=== PATIENT | female | born 1975 | race Two or more races ===

== ENCOUNTER 2025-05-12 14:53 | Inpatient (IN) | payer OTHER ==
[~2025-05-12] VITALS: Ht 154.9 cm; Wt 85.0 kg
--- NOTE | 2025-05-12 15:55 | ED.PDOC ---
Back pain HPI HPI Comments This is a 49 year-old female, who presents to the ED via wheelchair for worsening lower back pain as of X1 month ago. Patient reports that in the 1st week of April, she was lifting a box at work when she felt a "pinch" sensation to the right lower back with associated pain. She sought medical help through a chiropractic, with no relief noted. Patient reports an additional injury to the back last , 05/07/25, where she bent forward at home, worsening back pain. Patient then went to [facility] after increasing back pain, where she was discharged with lumbar radiculopathy. The patient was prescribed Tylenol, lidocaine patches, ibuprofen, and gabapentin, with little to no relief. Patient reports additionally undergoing an x-ray of the right femur lumbar spine and right lower extremity to rule out possible signs of DVT. Has a currently, the patient states pain is a 10/10 with an inability to ambulate. Patient has no further co mplaints at this time. Patient denies nausea, vomiting, fever, chills, dizziness, or chest pain. Denies history of chronic steroid use or history of osteoporosis Denies history of cancer Denies fevers chills night sweats nausea vomiting unintentional weight loss Denies abdominal tearing pain Denies syncope Denies urinary changes or urinary incontinence Denies numbness tingling of the groin her inner thigh Denies previous back procedures or surgeries Chief Complaint: Back Pain Time Seen by MD: 15:47 Reviewed Notes: Nurses Notes, Medications, Allergies Allergies: Coded Allergies: NO KNOWN ALLERGIES (Unverified , 05/12/25) Home Meds Active Scripts Gabapentin (Gabapentin) 300 Mg Cap, 1 CAP PO TID, #60 CAP 5 Refills Prov:PAMELA RAMOS MD 05/15/25 Baclofen (Baclofen) 20 Mg Tab, 1 TAB PO TID, #60 TAB 2 Refills Prov:PAMELA RAMOS MD 05/15/25 Oxycodone Hcl (OxyCONTIN ER Tablet) 10 Mg Tb, 1 TAB PO BID, #40 TAB Prov:PAMELA RAMOS MD 05/15/25 Reported Medications Acetazolamide (Acetazolamide) 250 Mg Tab, 500 MG PO Q6HR for 30 Days, MG 0 Refills 05/12/25 Methylprednisolone (Methylprednisolone) 4 Mg Tab, 4 MG PO, TAB 05/12/25 Lidocaine (Lidocaine Patch 5%) 5 % Pad, 5 % EX DAILY, PAD 05/12/25 Ibuprofen (Ibuprofen) 600 Mg Tab, 600 MG PO Q6HP, MG 0 Refills 05/12/25 Gabapentin (Gabapentin) 100 Mg Cap, 100 MG PO TID for 10 Days 05/12/25 Information Source: Patient, Spouse Mode of Arrival: Wheelchair Timing: Months Duration: Since onset Location of Back pain: (R) Lumbar Radiates to: Lateral: Other (R Leg ) Severity: Moderate Onset: Bending, Lifing Associated signs and symptoms: Other (Back pain) Past Medical History PAST MEDICAL HISTORY: Denies Surgical History: Denies all surgeries 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 History Family History Family History: Reviewed,noncontributory to illness, No family hx of Cancer, No family hx of DM, No family hx of Heart michelle, No family hx of HTN, No family hx ofKidney michelle, No family hx of Liver michelle, No family hx of Lung michelle, No family hx of Stroke Social History Smoker: Non-Smoker Alcohol: Denies ETOH Use Drugs: Denies Drug Use Lives In: Home Constitutional: denies: chills, diaphoresis, fatigue, fever, malaise, sweats, weakness, others EENTM: denies: blurred vision, double vision, ear bleeding, ear discharge, ear drainage, ear pain, ear ringing, eye pain, eye redness, hearing loss, mouth pain, mouth swelling, nasal discharge, nose bleeding, nose congestion, nose pain, photophobia, tearing, throat pain, throat swelling, voice changes, others Respiratory: denies: cough, hemoptysis, orthopnea, SOB at rest, shortness of breath, SOB with excertion, stridor, wheezing, others Cardiovascular: denies: chest pain, dizzy spells, diaphoresis, Dyspnea on exertion, edema, irregular heart beat, left arm pain, lightheadedness, palpitations, PND, syncope, others Gastrointestinal: denies: abdomen distended, abdominal pain, blood streaked bowels, constipated, diarrhea, dysphagia, difficulty swallowing, hematemesis, melena, nausea, poor appetite, poor fluid intake, rectal bleeding, rectal pain, vomiting, others Genitourinary: denies: abnormal vagina bleeding, burning, dyspareunia, dysuria, flank pain, frequency, hematuria, incontinence, pain, , vagina discharge, urgency, others Neurological: denies: dizziness, fainting, headache, left sided numbness, left sided weakness, numbness, paresthesia, pre-existing deficit, right sided num bness, right sided weakness, seizure, speech problems, tingling, tremors, weakness, others Musculoskeletal: reports: back pain; denies: gout, joint pain, joint swelling, muscle pain, muscle stiffness, neck pain, others Integumetry: denies: bruises, change in color, change in hair/nails, dryness, laceration, lesions, lumps, rash, wounds, others Allergic/Immunocompromised: denies: Difficulty Healing, Frequent Infections, Hi ves, Itching, others Hematologic/Lymphatic: denies: anemia, blood clots, easy bleeding, easy bruising, swollen glands, others Endocrine: denies: excessive hunger, excessive sweating, excessive thirst, excessive urination, flushing, intolerance to cold, intolerance to heat, unexplained weight gain, unexplained weight loss, others Psychiatric: denies: anxiety, bipolar disorder, depression, hopeless, panic disorder, schizophrenia, sleepless, suicidal, others All Other Systems: Reviewed and Negative Physical Exam General Appearance: Moderate Distress, Normal HEENT: Normal ENT Inspection, Pharynx Normal, TMs Normal Neck: Full Range of Motion, Non-Tender, Normal, Normal Inspection Respiratory: Chest Non-Tender, Lungs Clear, No Accessory Muscle Use, No Respiratory Distress, Normal Breath Sounds Cardiovascular: No Edema, No JVD, No Murmur, No Gallop, Normal Peripheral Pulses, Regular Rate/Rhythm Breast Exam: Deferred Gastrointestinal: No Organomegaly, Non Tender, No Pulsatile Mass, Normal Bowel Sounds, Soft Genitalia: Deferred Pelvic: Deferred Rectal: Deferred Extremities: No calf tenderness, Normal capillary refill, Normal inspection, Normal range of motion, Non-tender, No pedal edema Musculoskeletal : Location: Right Extremity Location: Back Apperance: Other (R lower back pain TTP, R straight leg raise test positive ) Neurologic: Alert, refrigeration technician II-XII nml as Tested, No Motor Deficits, Normal Affect, Normal Mood, No Sensory Deficits Cerebellar Function: Normal Reflexes: Normal Skin: Dry, Normal Color, Warm Lymphatic: No Adenopathy Was a procedure done? Was a procedure done?: No Back Pain Differential Dx Differential Diagnosis: Fracture, Musculoskeletal Pain, Strain X-Ray, Labs, Meds, VS Vital Signs Date Time Temp Pulse Resp B/P (MAP) Pulse Ox O2 Delivery O2 Flow Rate FiO2 05/12/25 14:58 97.6 85 16 110/72 99 97.6 Lab Test 05/12/25 18:30 05/12/25 14:37 Range/Units Urine Color Yellow Yellow Urine Clarity Clear Clear Urine pH 6.0 5.0-9.0 Urine Specific [place] 1.032 1.001-1.035 Urine Protein Negative Negative Urine Ketones Negative Negative Urine Blood Negative Negative /uL Urine Nitrite Negative Negative Urine Bilirubin Negative Negative Urine Urobilinogen Normal Negative mg/dL Urine Leukocyte Esterase Negative Negative /uL Urine RBC <1 0 - 4 /hpf Urine Microscopic WBC 1 0-5 /HPF Urine Squamous Epithelial Cells Few <5 /hpf Urine Bacteria Few H None Seen /hpf Urine Glucose Normal Normal mg/dL White Blood Count 10.5 4.4-10.8 10^3/uL Red Blood Count 4.64 4.0-5.20 10^6/uL Hemoglobin 13.9 12.2-16.2 g/dL Hematocrit 41.4 36.0-46.0 % Mean Corpuscular Volume 89.1 80.0-100.0 fL Mean Corpuscular Hemoglobin 30.0 28.0-32.0 pg Mean Corpuscular Hemoglobin Concent 33.6 32.0-36.0 g/dL Red Cell Distribution Width 13.5 11.8-14.3 % Platelet Count 264 140-450 10^3/uL Mean Platelet Volume 9.9 6.9-10.8 fL Neutrophils (%) (Auto) 67.7 37.0-80.0 % Lymphocytes (%) (Auto) 26.8 10.0-50.0 % Monocytes (%) (Auto) 4.4 0.0-12.0 % Eosinophils (%) (Auto) 0.6 0.0-7.0 % Basophils (%) (Auto) 0.5 0.0-2.0 % Neutrophils # (Auto) 7.1 1.6-8.6 10 ^3/uL Lymphocytes # (Auto) 2.8 0.4-5.4 10 ^3/uL Monocytes # (Auto) 0.5 0-1.3 10 ^3/uL Eosinophils # (Auto) 0.1 0-0.8 10 ^3/uL Basophils # (Auto) 0.1 0-0.2 10 ^3/uL Nucleated Red Blood Cells 0.1 % Erythrocyte Sedimentation Rate 13 0-20 mm/hr Sodium Level 142 136-145 mmol/L Potassium Level 3.7 3.5-5.1 mmol/L Chloride Level 107 98-107 mmol/L Carbon Dioxide Level 26 20-31 mmol/L Anion Gap 9 5-15 Blood Urea Nitrogen 14 9-23 mg/dL Creatinine 0.92 0.550-1.02 mg/dL Glomerular Filtration Rate Calc 76 >90 mL/min BUN/Creatinine Ratio 15.2 10.0-20.0 Serum Glucose 100 74-106 mg/dL Calcium Level 9.3 8.7-10.4 mg/dL C-Reactive Protein High Sensitivity 0.29 <1.0 mg/dL X-Ray, Labs, Meds, VS Comment This is a 49 year-old female, who presents to the ED via wheelchair for worsening lower back pain as of X1 month ago. Patient arrives alert and oriented, ABC's intact, afebrile, vital signs stable, saturating well in room air Peripheral IV insertion+ labs were ordered. CBC was ordered to exclude anemia, blood loss, or infection. BMP was ordered to exclude electrolyte abnormalities, renal failure, dehydration, hyperglycemia Urinalysis was ordered to rule out UTI or hematuria. Erythrocyte sedimentation rate and C-reactive protein were ordered. Diagnostic imaging ordered by me and results interpreted by radiology : L-spine CT with no contrast pending results at this time Patient was given: [place] 7.5/325 mg. Tolerated medications with no adverse reaction. Patients work up was remarkable for intractable lower back pain. The patient's workup reveals that the patient needs further evaluation and/or treatment for the above medical conditions. Patient may benefit from an MRI and will be admitted for pain control Patient verbalized understanding of the above and is awaiting further evaluation by the admitting service. Images Reviewed?: Images reviewed and evaluated by me Time of 1ST Reevaluation: 16:44 Reevaluation 1ST: Unchanged Patient Education/Counseling: Diagnosis, Treatment, Need For Follow Up Family Education/Counseling: Diagnosis, Treatment, Need For Follow Up Medical Screening: No EMC Exist At This Time SEPSIS Sepsis Screen Date sepsis recognized/suspect: May 12, 2025 Time Sepsis recognized/suspect: 1548 Recent Procedure: No On Antibiotic Therapy: No Respiratory Rate >20: No Heart Rate >90: No Temp<36 C (96.8 F) or >38.3 C: No SBP <90 or MAP <65 mmHG: No New Acute Mental Status Change: No Is the patient on CPAP, BIPAP,: No Physician Orders Ls Spine Wo Contrast (05/12/25 16:08) Vital Signs Date Time Temp Pulse Resp B/P (MAP) Pulse Ox O2 Delivery O2 Flow Rate FiO2 05/12/25 14:58 97.6 85 16 110/72 99 97.6 Laboratory Tests Test 05/12/25 14:37 White Blood Count 10.5 10^3/uL (4.4-10.8) Departure 1 Departure Time of Disposition: 17:21 Impression: Primary Impression: Lumbar radiculopathy Additional Impression: Intractable back pain Disposition: ADMITTED INPATIENT Condition: Fair Additional Instructions: Follow up with PCP in 1-2 days. Take medications as prescribed. Return to the ED for any new or worsening symptoms. e-Prescriptions Gabapentin (Gabapentin) 300 Mg Cap 1 CAP PO TID, #60 CAP 5 Refills Prov: PAMELA RAMOS MD 05/15/25 Baclofen (Baclofen) 20 Mg Tab 1 TAB PO TID, #60 TAB 2 Refills Prov: PAMELA RAMOS MD 05/15/25 Oxycodone Hcl (OxyCONTIN ER Tablet) 10 Mg Tb 1 TAB PO BID, #40 TAB Prov: PAMELA RAMOS MD 05/15/25 Discharged With: Self Critical Care Note Critical Care Time?: No Stability Stability form required: No Heart Score Heart Score: Heart Score Response (Comments) Value History N/A 0 EKG N/A 0 Age N/A 0 Risk Factors N/A 0 Troponin N/A 0 Total 0 I personally scribed for BILLIE COHEN NATURAL GAS FIELD PROCESSING SUPERVISOR ([place]) on 05/12/25 at 15:55. Electronically submitted by Yolanda Hewitt ([email or web address]). I personally scribed for BILLIE COHEN NP (SOCORRO) on 05/12/25 at 16:11. Electronically submitted by Yolanda Hewitt ([email or web address]). I personally scribed for BILLIE COHEN NP ([email or web address]) on 05/12/25 at 16:13. Electronically submitted by Yolanda Hewitt ([facility]). BILLIE COHEN NP May 12, 2025 15:55
[2025-05-12 16:50] LABS: Hematocrit 41.4 % (36.0-46.0); Hemoglobin 13.9 g/dL (12.2-16.2); Mean Corpuscular Hemoglobin 30.0 pg (28.0-32.0); Mean Corpuscular Volume 89.1 fL (80.0-100.0); Nucleated Red Blood Cells % 0.1 %
[2025-05-12 16:58] LABS: Potassium 3.7 mmol/L (3.5-5.1); Sodium 142 mmol/L (136-145)
[2025-05-12 16:59] LABS: Anion Gap 9 (5-15); Calcium 9.3 mg/dL (8.7-10.4); Carbon Dioxide 26 mmol/L (20-31)
[2025-05-12 17:04] LABS: BUN/Creatinine Ratio 15.2 (10.0-20.0); Blood Urea Nitrogen 14 mg/dL (9-23); Chloride 107 mmol/L (98-107); Glucose 100 mg/dL (74-106)
--- NOTE | 2025-05-12 17:22 | DVH ---
EXAM: CT LS SPINE WO CONTRAST HISTORY: L spine pain COMPARISON: None CTDIvol 36.57 mGy, DLP 1159.42 mGy*cm. TECHNIQUE: Multiple axial CT images of the spine were obtained using bone algorithm. Axial and mortensen l reformatting was done. Bone and soft tissue windows were reviewed. FINDINGS: No evidence of definite acute fracture, spinal dislocation, or significant appearing acute subluxatio n is seen. IMPRESSION: No definite CT evidence of acute fracture or dislocation of the bony lumbar spine.
[2025-05-12] MEDS: HYDROcodone-ACET 7.5/325MG TAB PO ONE (17:33)
[2025-05-12] MEDS ORDERED: ACETAMINOPHEN 325 MG TAB PO PRN (19:45)
[2025-05-12 20:05] LABS: Urine Protein, UAD Negative (Negative)
--- NOTE | 2025-05-12 22:28 | DVHHP2 ---
History of Present Illness Reason for Visit: Lower back pain History of Present Illness 49-year-old female presents for evaluation of lower back pain. Patient reports lifting a heavy box approximately three weeks ago and subsequently developed lower back pain. She states the pain being managed well with [id number] medications until of last week when the pain became unbearable and she was unable to ambulate without severe pain. She states the pain is sharp lower on her lower back in the radiates to her right leg. Denies any tingling or numbness to bilateral extremities. No urinary or bowel incontinence. Past Medical History Denies Past Surgical History None Family History Noncontributory Smoke: No ALCOHOL: none Drugs: None Lives: with Family Review of Systems Review of Systems Review of systems are currently negative otherwise addressed in HPI. Allergies: Coded Allergies: NO KNOWN ALLERGIES (Unverified , 05/12/25) Medications Current Medications Medications Dose Ordered Sig/Maurisio Route Start Time Stop Time Status Last Admin Dose Admin Baclofen 5 mg Q8HP PRN PO 05/12/25 19:45 Lidocaine 1 patch DAILY TOP 05/13/25 10:00 Acetaminophen/ Hydrocodone Bitart 1 tab Q4HP PRN PO 05/12/25 19:45 Temazepam 15 mg QHSP PRN PO 05/12/25 19:45 Ondansetron HCl 4 mg Q4HP PRN IV 05/12/25 19:45 Acetaminophen 650 mg Q6HP PRN PO 05/12/25 19:45 Morphine Sulfate 2 mg Q6HPRN PRN IV 05/12/25 19:45 Exam Vital Signs Vital Signs Date Time Temp Pulse Resp B/P (MAP) Pulse Ox O2 Delivery O2 Flow Rate FiO2 05/12/25 22:12 98.2 62 20 115/76 (89) 99 98.2 05/12/25 22:12 Room Air Exam Gen: 49-year-old female in mild distress Skin: Warm, dry, normal color and texture, no rash. HEENT: Normocephalic atraumatic, mucous membranes moist and pink. Neck: Cervical and supraclavicular nodes normal without enlargement, trachea is midline, thyroid gland is normal without masses. Pulmonary: Clear to auscultation and percussion bilaterally. Cardiac: Regular rate and rhythm. No murmur Abdomen: Soft, nontender, nondistended, bowel sounds present all 4 quadrants, no guarding, no rigidity, no organomegaly. Extremities: No cyanosis, clubbing, no edema Neuro: Cranial nerves II through XII grossly intact, normal affect and speech, no focal motor deficits. Labs/Xrays ORDERING PHYSICIAN: BILLIE COHEN NP PROCEDURE(s): LS2CT - LS SPINE WO CONTRAST REASON: L spine pain ORDER NUMBER(s): [id number], ACCESSION NUMBER(s): [id number] EXAM: CT LS SPINE WO CONTRAST HISTORY: L spine pain COMPARISON: None CTDIvol 36.57 mGy, DLP 1159.42 mGy*cm. TECHNIQUE: Multiple axial CT images of the spine were obtained using bone algorithm. Axial and coronal reformatting was done. Bone and soft tissue windows were reviewed. FINDINGS: No evidence of definite acute fracture, spinal dislocation, or significant appearing acute subluxation is seen. IMPRESSION: No definite CT evidence of acute fracture or dislocation of the bony lumbar spine. Labs Test 05/12/25 18:30 05/12/25 14:37 Range/Units Urine Color Yellow Yellow Urine Clarity Clear Clear Urine pH 6.0 5.0-9.0 Urine Specific [place] 1.032 1.001-1.035 Urine Protein Negative Negative Urine Ketones Negative Negative Urine Blood Negative Negative /uL Urine Nitrite Negative Negative Urine Bilirubin Negative Negative Urine Urobilinogen Normal Negative mg/dL Urine Leukocyte Esterase Negative Negative /uL Urine RBC <1 0 - 4 /hpf Urine Microscopic WBC 1 0-5 /HPF Urine Squamous Epithelial Cells Few <5 /hpf Urine Bacteria Few H None Seen /hpf Urine Glucose Normal Normal mg/dL White Blood Count 10.5 4.4-10.8 10^3/uL Red Blood Count 4.64 4.0-5.20 10^6/uL Hemoglobin 13.9 12.2-16.2 g/dL Hematocrit 41.4 36.0-46.0 % Mean Corpuscular Volume 89.1 80.0-100.0 fL Mean Corpuscular Hemoglobin 30.0 28.0-32.0 pg Mean Corpuscular Hemoglobin Concent 33.6 32.0-36.0 g/dL Red Cell Distribution Width 13.5 11.8-14.3 % Platelet Count 264 140-450 10^3/uL Mean Platelet Volume 9.9 6.9-10.8 fL Neutrophils (%) (Auto) 67.7 37.0-80.0 % Lymphocytes (%) (Auto) 26.8 10.0-50.0 % Monocytes (%) (Auto) 4.4 0.0-12.0 % Eosinophils (%) (Auto) 0.6 0.0-7.0 % Basophils (%) (Auto) 0.5 0.0-2.0 % Neutrophils # (Auto) 7.1 1.6-8.6 10 ^3/uL Lymphocytes # (Auto) 2.8 0.4-5.4 10 ^3/uL Monocytes # (Auto) 0.5 0-1.3 10 ^3/uL Eosinophils # (Auto) 0.1 0-0.8 10 ^3/uL Basophils # (Auto) 0.1 0-0.2 10 ^3/uL Nucleated Red Blood Cells 0.1 % Erythrocyte Sedimentation Rate 13 0-20 mm/hr Sodium Level 142 136-145 mmol/L Potassium Level 3.7 3.5-5.1 mmol/L Chloride Level 107 98-107 mmol/L Carbon Dioxide Level 26 20-31 mmol/L Anion Gap 9 5-15 Blood Urea Nitrogen 14 9-23 mg/dL Creatinine 0.92 0.550-1.02 mg/dL Glomerular Filtration Rate Calc 76 >90 mL/min BUN/Creatinine Ratio 15.2 10.0-20.0 Serum Glucose 100 74-106 mg/dL Calcium Level 9.3 8.7-10.4 mg/dL C-Reactive Protein High Sensitivity 0.29 <1.0 mg/dL SEPSIS Sepsis Screen Date sepsis recognized/suspect: May 12, 2025 Time Sepsis recognized/suspect: 2220 Recent Procedure: No On Antibiotic Therapy: No Respiratory Rate >20: No Heart Rate >90: No Temp<36 C (96.8 F) or >38.3 C: No SBP <90 or MAP <65 mmHG: No New Acute Mental Status Change: No Is the patient on CPAP, BIPAP,: No Physician Orders Ls Spine Wo Contrast (05/12/25 16:08) Admit (05/12/25 19:42) Lumbar Spine Wo Contrast (05/12/25 19:44) Baclofen Tablet (Liorisal Tablet) (05/12/25 19:45) Lidocaine 5% Topical Patch (Lidoderm 5% (05/13/25 10:00) Hydrocodone-Acet 5/325mg Tab ([place] 5/32 (05/12/25 19:45) Temazepam (Restoril) (05/12/25 19:45) Ondansetron Hcl (Zofran) (05/12/25 19:45) Condition: Stable (05/12/25 19:44) Acetaminophen Tablet (Tylenol Tablet) (05/12/25 19:45) Bedrest With Bathroom Privileg (05/12/25 19:44) Morphine Sulfate Injection (05/12/25 19:45) Vital Signs Date Time Temp Pulse Resp B/P (MAP) Pulse Ox O2 Delivery O2 Flow Rate FiO2 05/12/25 22:12 98.2 62 20 115/76 (89) 99 98.2 05/12/25 22:12 68 20 99 Room Air 05/12/25 14:58 97.6 85 16 110/72 99 97.6 Laboratory Tests Test 05/12/25 14:37 White Blood Count 10.5 10^3/uL (4.4-10.8) Medications Medications Dose Ordered Sig/Maurisio Route Start Time Stop Time Status Last Admin Dose Admin Acetaminophen/ Hydrocodone Bitart 1 tab ONCE ONCE PO 05/12/25 16:15 05/12/25 16:32 DC 05/12/25 17:33 1 TAB Assessment/Plan Assessment/Plan Assessment Acute on chronic back pain Lumbar radiculopathy Plan Admit the patient to [facility] to the hospitalist Pain management MRI of the lumbar spine pending Continue treatment per orders. Plan discussed with: Patient My Orders Orders - GRACE HERMAN AGACNP Procedure Category Date Status Time Admit ADMIT 05/12/25 Transmitted 19:42 Lumbar Spine Wo MRI 05/12/25 Logged Contrast 19:44 Baclofen Tablet PHA 05/12/25 In Process (Liorisal Tablet) 19:45 Lidocaine 5% Topical PHA 05/13/25 In Process Patch (Lidoderm 5% 10:00 Hydrocodone-Acet PHA 05/12/25 In Process 5/325mg Tab ([place] 19:45 Temazepam (Restoril) PHA 05/12/25 In Process 19:45 Ondansetron Hcl PHA 05/12/25 In Process (Zofran) 19:45 Condition: Stable GALINDO 05/12/25 In Process 19:44 Acetaminophen Tablet PHA 05/12/25 In Process (Tylenol Tablet) 19:45 Bedrest With Bathroom GALINDO 05/12/25 In Process Privileg 19:44 Morphine Sulfate PHA 05/12/25 In Process Injection 19:45 Date of Service: May 12, 2025 Billing Provider: GRACE HERMAN Common Visit Codes: [id number] INP/OBS CARE (MOD) GRACE HERMAN May 12, 2025 22:28
[2025-05-12 22:59] VITALS: BP 137/71; PULSE 64; RESP 19; TEMP 97.4; TEMP 97.7; O2SAT 99
[2025-05-12] MEDS: MORPHINE SULFATE INJ 2 MG/ml SYRG IV PRN (23:09)
[2025-05-12] MEDS: ONDANSETRON HCL 4 MG/2 ML VIAL IV PRN (23:09)
[2025-05-12] MEDS ORDERED: IBUP-1454 PO (23:49)
[2025-05-12] MEDS ORDERED: ACET250T20 PO (23:49)
[2025-05-12] MEDS ORDERED: LIDO5PAD12 EX (23:49)
[2025-05-12] MEDS ORDERED: METH4TAB44 PO (23:49)
[2025-05-12] MEDS ORDERED: GABA-1308 PO (23:49)
[2025-05-13] VITALS (7 sets, daily range): BP systolic 98–116; BP diastolic 54–76; PULSE 60–71; RESP 16–18; TEMP 97–98.2; O2SAT 93–100
[2025-05-13] MEDS: TEMAZEPAM 15 MG CAP PO PRN (00:56)
[2025-05-13] MEDS: HYDROcodone-ACET 5/325MG TAB PO PRN (02:02)
[2025-05-13] MEDS: LIDOCAINE 5% TOPICAL PATCH TOP SCH (08:49)
[2025-05-13] MEDS: BACLOFEN 10 MG TAB PO PRN (08:49)
--- NOTE | 2025-05-13 11:40 | DVH ---
PROCEDURE: MRI lumbar spine without contrast. INDICATION: Back pain COMPARISON: CT LS SPINE WO CONTRAST on DOS: 05/12/25 TECHNIQUE: MRI lumbar spine without intravenous contrast utilizing multiplanar, multisequence techni que. FINDINGS: The alignment of the lumbar spine vertebral bodies is preserved. There is a subcentimeter T1 hyperint ense, t2/stir hypointense lesion in the L4 vertebral body consistent with a benign hemangioma. Bone m arrow signal is otherwise homogenous and unremarkable. The vertebral body heights are maintained. The intervertebral disc spaces are maintained in height. Diminished T2 signal intensity in the L4-L5 an d L5-S1 intervertebral discs, compatible with desiccation. The conus medullaris is normal in signal c haracteristics and terminates at the T12-L1 level. Paraspinal muscles are unremarkable. At the T12-L1 level, there is no evidence of central spinal canal or neuroforaminal stenosis. At the L1-L2 level, there is no evidence of central spinal canal or neuroforaminal stenosis. At the L2-L3 level, there is no evidence of central spinal canal or neuroforaminal stenosis. At the L3-L4 level, there is no evidence of central spinal canal stenosis. Mild bilateral neural for aminal stenosis. At the L4-L5 level, there is right posterolateral annular fissure and foraminal disc protrusion. No s ignificant central spinal stenosis. There is mild left and moderate right neural foraminal stenosis. The disc protrusion abuts the exiting right L4 nerve root. At the L5-S1 level, there is posterior central disc protrusion. No significant spinal stenosis. No s ignificant neural foraminal stenosis. Other: None. IMPRESSION: 1. Right foraminal annular fissure and disc protrusion at L4-LThe disc protrusion causes moderate rig ht neural foraminal stenosis and abuts the exiting right L4 nerve root. 2. Posterior central disc protrusion at L5-S1 without significant spinal or neural foraminal stenosis .
--- NOTE | 2025-05-13 11:55 | DVHPN2 ---
Reviewed: Care Plan, H&P, Labs, Medications, Previous Orders, Radiology Changes from previous H/P or p: No Changes Objective Vitals Vital Signs Date Time Temp Pulse Resp B/P (MAP) Pulse Ox O2 Delivery O2 Flow Rate FiO2 05/13/25 08:33 97.0 60 16 116/76 (89) 100 97.0 05/12/25 22:59 Room Air* 0 21 Intake/Output Intake and Output 05/13/25 07:00 Intake Total 150 ml Balance 150 ml Intake Oral 150 ml Medications Current Medications Medications Dose Ordered Sig/Maurisio Route Start Time Stop Time Status Last Admin Dose Admin Baclofen 5 mg Q8HP PRN PO 05/12/25 19:45 05/13/25 08:49 5 MG Lidocaine 1 patch DAILY TOP 05/13/25 10:00 05/13/25 08:49 1 PATCH Acetaminophen/ Hydrocodone Bitart 1 tab Q4HP PRN PO 05/12/25 19:45 05/13/25 08:53 1 TAB Temazepam 15 mg QHSP PRN PO 05/12/25 19:45 05/13/25 00:56 15 MG Ondansetron HCl 4 mg Q4HP PRN IV 05/12/25 19:45 05/13/25 05:58 4 MG Acetaminophen 650 mg Q6HP PRN PO 05/12/25 19:45 Morphine Sulfate 2 mg Q6HPRN PRN IV 05/12/25 19:45 05/13/25 05:59 2 MG Laboratory Results Laboratory Tests 05/12/25 14:37 Chemistry Test 05/12/25 14:37 Calcium Level 9.3 mg/dL (8.7-10.4) Urinalysis Test 05/12/25 18:30 Urine Color Yellow (Yellow) Urine Clarity Clear (Clear) Urine pH 6.0 (5.0-9.0) Urine Specific [place] 1.032 (1.001-1.035) Urine Protein Negative (Negative) Urine Ketones Negative (Negative) Urine Blood Negative /uL (Negative) Urine Nitrite Negative (Negative) Urine Bilirubin Negative (Negative) Urine Urobilinogen Normal mg/dL (Negative) Urine Leukocyte Esterase Negative /uL (Negative) Urine RBC <1 /hpf (0 - 4) Urine Microscopic WBC 1 /HPF (0-5) Urine Squamous Epithelial Cells Few /hpf (<5) Urine Bacteria Few /hpf (None Seen) H Urine Glucose Normal mg/dL (Normal) Labs and/or images reviewed: Labs reviewed by me, Image(s) reviewed by me Assessment/Plan Assessment/Plan Acute on chronic low back pain : [place] morphine Lumbar radiculopathy Disc protrusion L4-5: Consult for spine surgeon Time Spent 45 minutes Plan discussed with: Patient My Orders Orders - PAMELA RAMOS MD Procedure Category Date Status Time * Orthopedic Consult CONS 05/13/25 Verified 11:53 Date of Service: May 13, 2025 Billing Provider: PAMELA RAMOS MD Common Visit Codes: [id number] INP/OBS CARE(HIGH) PAMELA RAMOS MD May 13, 2025 11:55
[2025-05-13] MEDS: GABAPENTIN 300 MG CAP PO SCH (15:02)
--- NOTE | 2025-05-13 15:12 | DVHINCON2 ---
Consult Note Consult Consult Note Reason for Consult Evaluation of acute exacerbation of low back pain with right-sided radicular symptoms. --- History of Present Illness Ms Florian is a 49-year-old female admitted for worsening low back pain. Pain began 1 month ago, atraumatic in onset. 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 Pain has gradually worsened over the past month, with significant exacerbation in the last 2 weeks. Current pain radiates from the right lower back into the buttock, anterior thigh, and knee No history of recent trauma, fall, or accident. Denies bowel or bladder incontinence, saddle anesthesia, fever, or recent infection. Reports difficulty weight-bearing due to pain. --- Exam General: Patient uncomfortable, in pain. Spine: Tenderness over lumbosacral spine, greatest at L4L5. L5-S1 region, RIGHT BUTTOCK , Anterior thigh and knee. Neuro/MSK: Strength: Right quadriceps 4/5, EHL 5/5, otherwise intact. Sensation: Intact grossly Reflexes: Intact bilaterally. Straight leg raise: Positive on the right. Gait: Unable to ambulate fully due to pain. No gross deformity or step-off. --- Imaging MRI Lumbar Spine: L4L5: Right posterolateral annular fissure and foraminal disc protrusion causing moderate right foraminal stenosis, abutting exiting right L4 nerve root. L5S1: Central disc protrusion without significant canal stenosis. Other levels unremarkable. --- Impression Acute exacerbation of low back pain with right L4 radiculopathy secondary to L4L5 disc protrusion and foraminal stenosis. radiculopathy: Right quadriceps weakness (L4 distribution) and severe functional limitation. --- Plan Continue multimodal regimen: Acetaminophen, NSAID if no contraindication. Short steroid taper (prednisone/Medrol Dosepak). Gabapentin for neuropathic component. Short-term opioid for breakthrough pain while inpatient. Use of walker or crutches for safe ambulation. TLSO Lumbar support brace as tolerated. Discussed with Dr. Swift Requested Ortho Spine consult for further eval for this patients due to noted right LE with pain, mild weakness and inability to weight bear. Monitor for red flag symptoms (bowel/bladder dysfunction, progressive weakness). Daily neuro checks while inpatient. Plan discussed with: Patient, Other (bedside nurse) Visit Coding Surgery Date of Service if different f: May 13, 2025 Billing Provider: GABE MULLEN Surgery Visit Codes: [id number] - INP CONSULT <55 MIN GABE MULLEN May 13, 2025 15:12
[2025-05-14 05:00] VITALS: BP 108/71; PULSE 61; RESP 16; TEMP 98.5; O2SAT 94
--- NOTE | 2025-05-14 06:10 | DVHINCON2 ---
Consultation - Surgical Date Seen: May 14, 2025 Referring Physician Referring Physician Attending Doctor: Johan Cordon MD Reason for Consultation Reason for Visit: Lower back pain History of Present Illness History of Present Illness History of Present Illness 49-year-old female presents for evaluation of lower back pain. Patient reports lifting a heavy box approximately three weeks ago and subsequently developed lower back pain. She states the pain being managed well with [id number] medications until of last week when the pain became unbearable and she was unable to ambulate without severe pain. She states the pain is sharp lower on her lower back in the radiates to her right leg. Denies any tingling or numbness to bilateral extremities. No urinary or bowel incontinence. Spine H/P No hx on any back surgeries in the past, injury is atraumatic in nature. Past Medical/Surgical History Past Medical/Surgical History Past Medical History Denies Past Surgical History None Family and Social History Family and Social History Family History Noncontributory Smoke: No ALCOHOL: none Drugs: None Lives: with Family Allergies and medications Allergies: Coded Allergies: NO KNOWN ALLERGIES (Unverified , 05/12/25) Home Meds Reported Medications Acetazolamide (Acetazolamide) 250 Mg Tab, 500 MG PO Q6HR for 30 Days, MG 0 Refills 05/12/25 Methylprednisolone (Methylprednisolone) 4 Mg Tab, 4 MG PO, TAB 05/12/25 Lidocaine (Lidocaine Patch 5%) 5 % Pad, 5 % EX DAILY, PAD 05/12/25 Ibuprofen (Ibuprofen) 600 Mg Tab, 600 MG PO Q6HP, MG 0 Refills 05/12/25 Gabapentin (Gabapentin) 100 Mg Cap, 100 MG PO TID for 10 Days 05/12/25 Review of systems Review of Systems: MSK:Abnormal (low back pain with radiation to Right hip, glut, annd down leg. Pain with ambulation), NEURO:Normal Examination Vital signs Imaging: ORDERING PHYSICIAN: GRACE HERMAN PROCEDURE(s): MSL - LUMBAR SPINE WO CONTRAST REASON: Back pain ORDER NUMBER(s): [id number], ACCESSION NUMBER(s): [id number] PROCEDURE: MRI lumbar spine without contrast. INDICATION: Back pain COMPARISON: CT LS SPINE WO CONTRAST on DOS: 05/12/25 TECHNIQUE: MRI lumbar spine without intravenous contrast utilizing multiplanar, multisequence technique. FINDINGS: The alignment of the lumbar spine vertebral bodies is preserved. There is a subcentimeter T1 hyperintense, t2/stir hypointense lesion in the L4 vertebral body consistent with a benign hemangioma. Bone marrow signal is otherwise homogenous and unremarkable. The vertebral body heights are maintained. The intervertebral disc spaces are maintained in height. Diminished T2 signal intensity in the L4-L5 and L5-S1 intervertebral discs, compatible with de siccation. The conus medullaris is normal in signal characteristics and terminates at the T12-L1 level. Paraspinal muscles are unremarkable. At the T12-L1 level, there is no evidence of central spinal canal or neuroforaminal stenosis. At the L1-L2 level, there is no evidence of central spinal canal or neuroforaminal stenosis. At the L2-L3 level, there is no evidence of central spinal canal or neuroforaminal stenosis. At the L3-L4 level, there is no evidence of central spinal canal stenosis. Mild bilateral neural foraminal stenosis. At the L4-L5 level, there is right posterolateral annular fissure and foraminal disc protrusion. No significant central spinal stenosis. There is mild left and moderate right neural foraminal stenosis. The disc protrusion abuts the exiting right L4 nerve root. At the L5-S1 level, there is posterior central disc protrusion. No significant spinal stenosis. No significant neural foraminal stenosis. Other: None. IMPRESSION: 1. Right foraminal annular fissure and disc protrusion at L4-L5 The disc protrusion causes moderate right neural foraminal stenosis and abuts the exiting right L4 nerve root. 2. Posterior central disc protrusion at L5-S1 without significant spinal or neural foraminal stenosis. RING PHYSICIAN: BILLIE COHEN NP PROCEDURE(s): LS2CT - LS SPINE WO CONTRAST REASON: L spine pain ORDER NUMBER(s): [id number], ACCESSION NUMBER(s): [id number] EXAM: CT LS SPINE WO CONTRAST HISTORY: L spine pain COMPARISON: None CTDIvol 36.57 mGy, DLP 1159.42 mGy*cm. TECHNIQUE: Multiple axial CT images of the spine were obtained using bone algorithm. Axial and coronal reformatting was done. Bone and soft tissue windows were reviewed. FINDINGS: No evidence of definite acute fracture, spinal dislocation, or significant appearing acute subluxation is seen. IMPRESSION: No definite CT evidence of acute fracture or dislocation of the bony lumbar spine. Vital Signs Date Time Temp Pulse Resp B/P (MAP) Pulse Ox O2 Delivery O2 Flow Rate FiO2 05/14/25 05:38 64 18 108/71 05/14/25 05:00 98.5 94 98.5 05/13/25 20:00 Room Air* 0 21 Medications Current Medications Medications (Trade) Dose Ordered Sig/Maurisio Route PRN Reason Start Time Stop Time Status Last Admin Lidocaine (Lidoderm 5% Topical Patch) 1 patch DAILY TOP 05/13/25 10:00 05/13/25 08:49 Gabapentin (Neurontin Capsule) 300 mg TID PO 05/13/25 14:00 05/14/25 05:34 Oxycodone HCl (OxyCONTIN ER Tablet) 10 mg Q12HR PO 05/13/25 22:00 05/13/25 21:15 Laboratory Labs Test 05/12/25 18:30 05/12/25 14:37 Range/Units Urine Color Yellow Yellow Urine Clarity Clear Clear Urine pH 6.0 5.0-9.0 Urine Specific [place] 1.032 1.001-1.035 Urine Protein Negative Negative Urine Ketones Negative Negative Urine Blood Negative Negative /uL Urine Nitrite Negative Negative Urine Bilirubin Negative Negative Urine Urobilinogen Normal Negative mg/dL Urine Leukocyte Esterase Negative Negative /uL Urine RBC <1 0 - 4 /hpf Urine Microscopic WBC 1 0-5 /HPF Urine Squamous Epithelial Cells Few <5 /hpf Urine Bacteria Few H None Seen /hpf Urine Glucose Normal Normal mg/dL White Blood Count 10.5 4.4-10.8 10^3/uL Red Blood Count 4.64 4.0-5.20 10^6/uL Hemoglobin 13.9 12.2-16.2 g/dL Hematocrit 41.4 36.0-46.0 % Mean Corpuscular Volume 89.1 80.0-100.0 fL Mean Corpuscular Hemoglobin 30.0 28.0-32.0 pg Mean Corpuscular Hemoglobin Concent 33.6 32.0-36.0 g/dL Red Cell Distribution Width 13.5 11.8-14.3 % Platelet Count 264 140-450 10^3/uL Mean Platelet Volume 9.9 6.9-10.8 fL Neutrophils (%) (Auto) 67.7 37.0-80.0 % Lymphocytes (%) (Auto) 26.8 10.0-50.0 % Monocytes (%) (Auto) 4.4 0.0-12.0 % Eosinophils (%) (Auto) 0.6 0.0-7.0 % Basophils (%) (Auto) 0.5 0.0-2.0 % Neutrophils # (Auto) 7.1 1.6-8.6 10 ^3/uL Lymphocytes # (Auto) 2.8 0.4-5.4 10 ^3/uL Monocytes # (Auto) 0.5 0-1.3 10 ^3/uL Eosinophils # (Auto) 0.1 0-0.8 10 ^3/uL Basophils # (Auto) 0.1 0-0.2 10 ^3/uL Nucleated Red Blood Cells 0.1 % Erythrocyte Sedimentation Rate 13 0-20 mm/hr Sodium Level 142 136-145 mmol/L Potassium Level 3.7 3.5-5.1 mmol/L Chloride Level 107 98-107 mmol/L Carbon Dioxide Level 26 20-31 mmol/L Anion Gap 9 5-15 Blood Urea Nitrogen 14 9-23 mg/dL Creatinine 0.92 0.550-1.02 mg/dL Glomerular Filtration Rate Calc 76 >90 mL/min BUN/Creatinine Ratio 15.2 10.0-20.0 Serum Glucose 100 74-106 mg/dL Calcium Level 9.3 8.7-10.4 mg/dL C-Reactive Protein High Sensitivity 0.29 <1.0 mg/dL Examination: GENERAL:Normal, HEENT:Normal, NECK:Normal, LUNGS:Normal, CVS:Normal, ABDOMEN:Normal, MSK:Abnormal (pain to low back , some improvment reported with resting and meds), SKIN:Normal, NEURO:Abnormal (low back pain with radiation to Right hip, glut, annd down leg. Pain with ambulation), :Normal Problem List/Assessment/Plan Problems: (1) Herniated lumbar intervertebral disc (2) Lumbar radiculopathy (3) Intractable back pain Assessment and Plan Right foraminal annular fissure and disc protrusion at L4-L5, causing some right neural foraminal stenosis and abuts the exiting right L4 nerve root. Posterior central disc protrusion at L5-S1 without significant spinal or neural foraminal stenosis. Continue supportive care per admitting team's discretion No significant spinal or neural foraminal stenosis noted TLSO brace would be for comfort and not necessarily function. Continue with muscle relaxers pain management Physical therapy for evaluation treatment recommendations, and safe discharge recommendations Recommend this patient have conservative management for this issue and outpatient follow up for establishment of physical therapy, pain management and establishing care with a spine surgeon Follow up with PCP for recommendations or referrals to Dr Vernon Meeks No barriers to safe discharge for a spine perspective Call [phone] for a appointment, or to change or confirm your appointment [id number] [phone] Call with questions [facility] Laguer[facility] Orthopaedic Spine Surgery nurse practitioner For Dr Yasir Meeks Patient was examined, chart reviewed, labs evaluated, and diagnostic studies and findings analyzed. Case was discussed with Dr. Vernon Meeks who formulated the plan of care. This medical document was created using an electronic medical record system with [employer] dictation system. Although this document has been carefully reviewed, there might still be some phonetic and typographical errors. These areas are purely typographical due to imperfections of the software programs, and do not reflect any compromise in the patient's medical care. Plan discussed with Plan discussed with: Patient, Other Visit Coding Surgery Date of Service if different f: May 14, 2025 Billing Provider: VERNON MEEKS MD Surgery Visit Codes: [id number] - INP CONSULT <40 MIN DANIEL LAGUERRE NP May 14, 2025 06:10
[2025-05-14 08:22] VITALS: BP 101/69; PULSE 73; RESP 19; TEMP 97.9; O2SAT 95
--- NOTE | 2025-05-14 12:35 | DVHPN2 ---
Reviewed: Care Plan, H&P, Labs, Medications, Previous Orders, Radiology Changes from previous H/P or p: No Changes Objective Vitals Vital Signs Date Time Temp Pulse Resp B/P (MAP) Pulse Ox O2 Delivery O2 Flow Rate FiO2 05/14/25 08:22 97.9 73 19 101/69 (80) 95 97.9 05/14/25 08:15 Room Air* 0 21 Intake/Output Intake and Output 05/14/25 07:00 Intake Total 2000 ml Balance 2000 ml Intake Oral 2000 ml # Voids 3 Medications Current Medications Medications Dose Ordered Sig/Maurisio Route Start Time Stop Time Status Last Admin Dose Admin Baclofen 5 mg Q8HP PRN PO 05/12/25 19:45 05/14/25 05:36 5 MG Lidocaine 1 patch DAILY TOP 05/13/25 10:00 05/14/25 09:27 1 PATCH Acetaminophen/ Hydrocodone Bitart 1 tab Q4HP PRN PO 05/12/25 19:45 05/13/25 16:29 1 TAB Temazepam 15 mg QHSP PRN PO 05/12/25 19:45 05/13/25 00:56 15 MG Ondansetron HCl 4 mg Q4HP PRN IV 05/12/25 19:45 05/13/25 12:13 4 MG Acetaminophen 650 mg Q6HP PRN PO 05/12/25 19:45 Morphine Sulfate 2 mg Q6HPRN PRN IV 05/12/25 19:45 05/14/25 05:38 2 MG Gabapentin 300 mg TID PO 05/13/25 14:00 05/14/25 05:34 300 MG Oxycodone HCl 10 mg Q12HR PO 05/13/25 22:00 05/14/25 09:27 10 MG Laboratory Results Laboratory Tests 05/12/25 14:37 Urinalysis Test 05/12/25 18:30 Urine Color Yellow (Yellow) Urine Clarity Clear (Clear) Urine pH 6.0 (5.0-9.0) Urine Specific [place] 1.032 (1.001-1.035) Urine Protein Negative (Negative) Urine Ketones Negative (Negative) Urine Blood Negative /uL (Negative) Urine Nitrite Negative (Negative) Urine Bilirubin Negative (Negative) Urine Urobilinogen Normal mg/dL (Negative) Urine Leukocyte Esterase Negative /uL (Negative) Urine RBC <1 /hpf (0 - 4) Urine Microscopic WBC 1 /HPF (0-5) Urine Squamous Epithelial Cells Few /hpf (<5) Urine Bacteria Few /hpf (None Seen) H Urine Glucose Normal mg/dL (Normal) Labs and/or images reviewed: Labs reviewed by me, Image(s) reviewed by me Assessment/Plan Assessment/Plan Acute on chronic low back pain started after lifting heavy boxes at work : [place] morphine, baclofen, consult by orthopedic nurse practitioner Clair perez, advised pain management muscle relaxant and physical therapy Lumbar radiculopathy Disc protrusion L4-5: Time Spent 45 minutes Physical Therapy ordered Patient works for [employer] case per patient and her at the bedside Plan discussed with: Patient Date of Service: May 14, 2025 Billing Provider: PAMELA RAMOS MD Common Visit Codes: [id number] INP/OBS CARE(HIGH) PAMELA RAMOS MD May 14, 2025 12:35
[2025-05-14 13:00] VITALS: BP 135/89; PULSE 78; RESP 18; TEMP 100.6; O2SAT 94
[2025-05-14 16:54] VITALS: BP 112/70; PULSE 73; RESP 20; TEMP 98.4; O2SAT 97
[2025-05-14 20:00] VITALS: PULSE 68; RESP 16; O2SAT 94
[2025-05-14 21:00] VITALS: BP 109/61; PULSE 68; RESP 16; TEMP 98.5; O2SAT 94
[2025-05-15] VITALS (7 sets, daily range): BP systolic 97–141; BP diastolic 61–90; PULSE 65–102; RESP 16–20; TEMP 97.7–98.6; O2SAT 94–97
[2025-05-15] MEDS ORDERED: OXY10CRT PO (10:30)
[2025-05-15] MEDS ORDERED: BACL20TA PO (10:30)
[2025-05-15] MEDS ORDERED: GABA-1250 PO (10:30)
--- NOTE | 2025-05-15 10:33 | DVHPN2 ---
Reviewed: Care Plan, H&P, Labs, Medications, Previous Orders, Radiology Changes from previous H/P or p: No Changes Objective Vitals Vital Signs Date Time Temp Pulse Resp B/P (MAP) Pulse Ox O2 Delivery O2 Flow Rate FiO2 05/15/25 08:39 97.7 71 20 107/69 (82) 96 97.7 05/14/25 20:00 Room Air* 0 21 Intake/Output Intake and Output 05/15/25 07:00 Intake Total 2765 ml Output Total 600 ml Balance 2165 ml Intake Oral 2765 ml Output Urine Total 600 ml # Voids 2 Medications Current Medications Medications Dose Ordered Sig/Maurisio Route Start Time Stop Time Status Last Admin Dose Admin Baclofen 5 mg Q8HP PRN PO 05/12/25 19:45 05/15/25 05:05 5 MG Lidocaine 1 patch DAILY TOP 05/13/25 10:00 05/15/25 10:00 1 PATCH Acetaminophen/ Hydrocodone Bitart 1 tab Q4HP PRN PO 05/12/25 19:45 05/14/25 16:03 1 TAB Temazepam 15 mg QHSP PRN PO 05/12/25 19:45 05/13/25 00:56 15 MG Ondansetron HCl 4 mg Q4HP PRN IV 05/12/25 19:45 05/13/25 12:13 4 MG Acetaminophen 650 mg Q6HP PRN PO 05/12/25 19:45 Morphine Sulfate 2 mg Q6HPRN PRN IV 05/12/25 19:45 05/15/25 02:44 2 MG Gabapentin 300 mg TID PO 05/13/25 14:00 05/15/25 05:05 300 MG Oxycodone HCl 10 mg Q12HR PO 05/13/25 22:00 05/15/25 10:00 10 MG Laboratory Results Laboratory Tests 05/12/25 14:37 Urinalysis Test 05/12/25 18:30 Urine Color Yellow (Yellow) Urine Clarity Clear (Clear) Urine pH 6.0 (5.0-9.0) Urine Specific [place] 1.032 (1.001-1.035) Urine Protein Negative (Negative) Urine Ketones Negative (Negative) Urine Blood Negative /uL (Negative) Urine Nitrite Negative (Negative) Urine Bilirubin Negative (Negative) Urine Urobilinogen Normal mg/dL (Negative) Urine Leukocyte Esterase Negative /uL (Negative) Urine RBC <1 /hpf (0 - 4) Urine Microscopic WBC 1 /HPF (0-5) Urine Squamous Epithelial Cells Few /hpf (<5) Urine Bacteria Few /hpf (None Seen) H Urine Glucose Normal mg/dL (Normal) Labs and/or images reviewed: Labs reviewed by me, Image(s) reviewed by me Assessment/Plan Assessment/Plan Acute on chronic low back pain started after lifting heavy boxes at work : Oxycodone ER gabapentin, baclofen, consult by orthopedic nurse practitioner Clair perez, advised pain management muscle relaxant and physical therapy Lumbar radiculopathy Disc protrusion L4-5: Time Spent 45 minutes Physical Therapy ordered Patient works for [employer] case per patient and her at the bedside Patient feels slightly better at the bedside advised discharge plan they agreed [facility] present Plan discussed with: Patient My Orders Orders - PAMELA RAMOS MD Procedure Category Date Status Time Pt Eval 60min PT 05/14/25 Logged 14:22 Date of Service: May 15, 2025 Billing Provider: PAMELA RAMOS MD Common Visit Codes: [id number] INP/OBS CARE(HIGH) PAMELA RAMOS MD May 15, 2025 10:33
--- NOTE | 2025-05-15 10:37 | DVHDS2 ---
Discharge Summary Date of Admission May 12, 2025 at 19:42 Date of Discharge: May 15, 2025 Admitting Diagnosis Severe back pain Wounds: None Labs/Diagnostic Data: Laboratory Results Test 05/12/25 18:30 05/12/25 14:37 Urine Color Yellow (Yellow) Urine Clarity Clear (Clear) Urine pH 6.0 (5.0-9.0) Urine Specific [place] 1.032 (1.001-1.035) Urine Protein Negative (Negative) Urine Ketones Negative (Negative) Urine Blood Negative /uL (Negative) Urine Nitrite Negative (Negative) Urine Bilirubin Negative (Negative) Urine Urobilinogen Normal mg/dL (Negative) Urine Leukocyte Esterase Negative /uL (Negative) Urine RBC <1 /hpf (0 - 4) Urine Microscopic WBC 1 /HPF (0-5) Urine Squamous Epithelial Cells Few /hpf (<5) Urine Bacteria Few /hpf (None Seen) Urine Glucose Normal mg/dL (Normal) White Blood Count 10.5 10^3/uL (4.4-10.8) Red Blood Count 4.64 10^6/uL (4.0-5.20) Hemoglobin 13.9 g/dL (12.2-16.2) Hematocrit 41.4 % (36.0-46.0) Mean Corpuscular Volume 89.1 fL (80.0-100.0) Mean Corpuscular Hemoglobin 30.0 pg (28.0-32.0) Mean Corpuscular Hemoglobin Concent 33.6 g/dL (32.0-36.0) Red Cell Distribution Width 13.5 % (11.8-14.3) Platelet Count 264 10^3/uL (140-450) Mean Platelet Volume 9.9 fL (6.9-10.8) Neutrophils (%) (Auto) 67.7 % (37.0-80.0) Lymphocytes (%) (Auto) 26.8 % (10.0-50.0) Monocytes (%) (Auto) 4.4 % (0.0-12.0) Eosinophils (%) (Auto) 0.6 % (0.0-7.0) Basophils (%) (Auto) 0.5 % (0.0-2.0) Neutrophils # (Auto) 7.1 10 ^3/uL (1.6-8.6) Lymphocytes # (Auto) 2.8 10 ^3/uL (0.4-5.4) Monocytes # (Auto) 0.5 10 ^3/uL (0-1.3) Eosinophils # (Auto) 0.1 10 ^3/uL (0-0.8) Basophils # (Auto) 0.1 10 ^3/uL (0-0.2) Nucleated Red Blood Cells 0.1 % Erythrocyte Sedimentation Rate 13 mm/hr (0-20) Sodium Level 142 mmol/L (136-145) Potassium Level 3.7 mmol/L (3.5-5.1) Chloride Level 107 mmol/L (98-107) Carbon Dioxide Level 26 mmol/L (20-31) Anion Gap 9 (5-15) Blood Urea Nitrogen 14 mg/dL (9-23) Creatinine 0.92 mg/dL (0.550-1.02) Glomerular Filtration Rate Calc 76 mL/min (>90) BUN/Creatinine Ratio 15.2 (10.0-20.0) Serum Glucose 100 mg/dL (74-106) Calcium Level 9.3 mg/dL (8.7-10.4) C-Reactive Protein High Sensitivity 0.29 mg/dL (<1.0) Other Laboratory Tests 05/12/25 14:37 Brief Hx & Hospital Course: 49-year-old female working for [employer] lifting heavy boxes felt back pain one month ago she is under worker's comp case. Came to ER for exacerbation of back pain. DNR MRI LS spine showed disc protrusion at L4-5. Patient was treated with the oxycodone ER baclofen and gabapentin seen by orthopedic advised conservative management pain medication and physical therapy patient feels slightly better being discharged home on the above three medications and she will follow up with a worker's comp Dr in one week. She was given one week off work note until she follows up with worker's comp Dr Consults/Reason for consult Orthopedic Operations or Procedures CT LS spine MRI LS spine Condition at Discharge: Fair Final Diagnosis/Problems List Acute on chronic low back pain started after lifting heavy boxes at work : Oxycodone ER gabapentin, baclofen, consult by orthopedic nurse practitioner Clair perez, advised pain management muscle relaxant and physical therapy Lumbar radiculopathy Disc protrusion L4-5: Discharge Disposition: Home Discharge Instruct/Medications Diet: Regular Activity: See Comment Activity comment: off Work for seven days Follow Up/Referral: Use Medications as prescribed Follow up with your worker's comp Dr as soon as possible Medications: Baclofen Gabapentin Oxycodone ER Transmitted to [facility] Acetazolamide (Acetazolamide), 500 MG PO Q6HR, (Reported) Baclofen (Baclofen), 1 TAB PO TID Gabapentin (Gabapentin), 100 MG PO TID, (Reported) Gabapentin (Gabapentin), 1 CAP PO TID Ibuprofen (Ibuprofen), 600 MG PO Q6HP, (Reported) Lidocaine (Lidocaine Patch 5%), 5 % EX DAILY, (Reported) Oxycodone Hcl (OxyCONTIN ER Tablet), 1 TAB PO BID Miscellaneous Medications Methylprednisolone (Methylprednisolone), 4 MG PO, (Reported) 39 (Time taken for discharge summary 39 minutes) Discharge Statement: "Patient was advised to return to the ER or call 911 if any headaches, dizziness, shortness of breath, chest pain, abdominal pain, bleeding, fevers, or worsening of medical condition. Patient was counseled about treatment plan, medications, possible side effects, patientverbalized understanding. All questions were answered to the best of my ability. This discharge took greater then 30 minutes in planning, reviewing documentation, counseling the patient, and discussing with other team members." ASSESSMENT ASSESSMENT Hospital Course Marginally improved Assessment Acute on chronic low back pain started after lifting heavy boxes at work : Oxycodone ER gabapentin, baclofen, consult by orthopedic nurse practitioner Clair perez, advised pain management muscle relaxant and physical therapy Lumbar radiculopathy Disc protrusion L4-5: Date of Service: May 15, 2025 Billing Provider: PAMELA RAMOS MD Common Visit Codes: 64149-YMB/OBS DISCH DAY >30min PAMELA RAMOS MD May 15, 2025 10:37
[2025-05-16 01:00] VITALS: BP 102/65; PULSE 85; RESP 19; TEMP 99.3; O2SAT 95
[2025-05-16 05:00] VITALS: BP 120/78; PULSE 84; RESP 18; TEMP 99.1; O2SAT 96
[2025-05-16 08:00] VITALS: PULSE 75; RESP 18
[2025-05-16 09:29] VITALS: BP 109/74; PULSE 75; RESP 14; TEMP 97; O2SAT 96
--- NOTE | 2025-05-16 09:57 | DVHPN2 ---
Reviewed: Care Plan, H&P, Labs, Medications, Previous Orders, Radiology Changes from previous H/P or p: No Changes Objective Vitals Vital Signs Date Time Temp Pulse Resp B/P (MAP) Pulse Ox O2 Delivery O2 Flow Rate FiO2 05/16/25 09:29 97.0 75 14 109/74 (86) 96 97.0 05/15/25 20:00 Room Air* 0 21 Intake/Output Intake and Output 05/16/25 07:00 Intake Total 1850 ml Output Total 2 ml Balance 1848 ml Intake Oral 1850 ml Stool Total 2 ml # Voids 3 # Bowel Movements 1 Medications Current Medications Medications Dose Ordered Sig/Maurisio Route Start Time Stop Time Status Last Admin Dose Admin Baclofen 5 mg Q8HP PRN PO 05/12/25 19:45 05/15/25 05:05 5 MG Lidocaine 1 patch DAILY TOP 05/13/25 10:00 05/15/25 10:00 1 PATCH Acetaminophen/ Hydrocodone Bitart 1 tab Q4HP PRN PO 05/12/25 19:45 05/16/25 05:25 1 TAB Temazepam 15 mg QHSP PRN PO 05/12/25 19:45 05/16/25 02:51 15 MG Ondansetron HCl 4 mg Q4HP PRN IV 05/12/25 19:45 05/13/25 12:13 4 MG Acetaminophen 650 mg Q6HP PRN PO 05/12/25 19:45 Morphine Sulfate 2 mg Q6HPRN PRN IV 05/12/25 19:45 05/16/25 09:19 2 MG Gabapentin 300 mg TID PO 05/13/25 14:00 05/16/25 05:25 300 MG Oxycodone HCl 10 mg Q12HR PO 05/13/25 22:00 05/15/25 21:35 10 MG Laboratory Results Laboratory Tests 05/12/25 14:37 Urinalysis Test 05/12/25 18:30 Urine Color Yellow (Yellow) Urine Clarity Clear (Clear) Urine pH 6.0 (5.0-9.0) Urine Specific [place] 1.032 (1.001-1.035) Urine Protein Negative (Negative) Urine Ketones Negative (Negative) Urine Blood Negative /uL (Negative) Urine Nitrite Negative (Negative) Urine Bilirubin Negative (Negative) Urine Urobilinogen Normal mg/dL (Negative) Urine Leukocyte Esterase Negative /uL (Negative) Urine RBC <1 /hpf (0 - 4) Urine Microscopic WBC 1 /HPF (0-5) Urine Squamous Epithelial Cells Few /hpf (<5) Urine Bacteria Few /hpf (None Seen) H Urine Glucose Normal mg/dL (Normal) Labs and/or images reviewed: Labs reviewed by me, Image(s) reviewed by me Assessment/Plan Assessment/Plan Acute on chronic low back pain started after lifting heavy boxes at work : Oxycodone ER gabapentin, baclofen, consult by orthopedic nurse practitioner Clair peerz, advised pain management muscle relaxant and physical therapy Lumbar radiculopathy Disc protrusion L4-5: Time Spent 45 minutes Physical Therapy ordered Patient works for [email or web address], worker's comp case per patient and her at the bedside Patient feels slightly better at the bedside advised discharge plan they agreed ABLERTO Nelson present Patient was discharged on 05/15/2025, 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
[2025-05-16] MEDS ORDERED: LACTULOSE 20Gm/30ML SOLN PO ONE (10:00)
[2025-05-16] MEDS: LACTULOSE 20Gm/30ML SOLN PO ONE (11:28)
[2025-05-16 12:50] VITALS: BP 127/80; PULSE 68; RESP 18; TEMP 98.3; O2SAT 98
[2025-05-16 16:59] VITALS: BP 127/86; PULSE 79; RESP 14; TEMP 98.6; O2SAT 95
== END 2025-05-16 18:06 | disposition home or self-care (01) | DRG 552 ==
LOC: ER 14:53 → OVERFLOW 19:42 → WEST WING 19:43
PROVIDERS: ADMIT Family Medicine; ATTEND Family Medicine
DX: M51.16 Intervertebral disc disorders with radiculopathy, lumbar region (principal); M51.17 Intervertebral disc disorders with radiculopathy, lumbosacral region; M48.07 Spinal stenosis, lumbosacral region; G89.29 Other chronic pain; Z66 Do not resuscitate; X50.1XXA Overexertion from prolonged static or awkward postures, initial encounter; X50.0XXA Overexertion from strenuous movement or load, initial encounter; Y99.0 Civilian activity done for income or pay; Y92.89 Other specified places as the place of occurrence of the external cause
CPT/HCPCS: 36415; 72131; 72148; 80048; 81001; 85025; 85652; 86141; 97110; 97116; 97163; 97530; G0378; J2405

== ENCOUNTER 2025-09-09 08:57 | Emergency (ER) | payer OTHER ==
[~2025-09-09] VITALS: Ht 154.9 cm; Wt 79.7 kg
[~2025-09-09 08:57] MED LIST: ACET250T20 PO; BACL20TA PO; GABA-1250 PO; GABA-1308 PO; IBUP-1454 PO; LIDO5PAD12 EX; METH4TAB44 PO; OXY10CRT PO
[2025-09-09 09:00] VITALS: BP 136/84; PULSE 70; RESP 18; TEMP 97.9; O2SAT 96
--- NOTE | 2025-09-09 09:33 | ED.PDOC ---
History of Present Illness HPI Comments This is a 49-year old female who presented to the ED with the chief complaint of pain and swelling around right knee since 2 weeks. Patient went to her orthopedics appointment today for follow up on her back pain which she has had for 3-4 months following an accident at workplace, and the knee pain since 2 wee ks which is constant, rated 7/10 in intensity, non radiating and associated with swelling around media; aspect of the knee. She was sent to the ED to rule out DVT. DVT scan was negative. Patient was recommended short interval follow up. Chief Complaint: Extremity Swelling Time Seen by MD: 09:10 Allergies: Coded Allergies: NO KNOWN ALLERGIES (Unverified , 05/12/25) Home Meds Active Scripts Gabapentin (Gabapentin) 300 Mg Cap, 1 CAP PO TID, #60 CAP 5 Refills Prov:PAMELA RAMOS MD 05/15/25 Baclofen (Baclofen) 20 Mg Tab, 1 TAB PO TID, #60 TAB 2 Refills Prov:PAMELA RAMOS MD 05/15/25 Oxycodone Hcl (OxyCONTIN ER Tablet) 10 Mg Tb, 1 TAB PO BID, #40 TAB Prov:PAMELA RAMOS MD 05/15/25 Reported Medications Acetazolamide (Acetazolamide) 250 Mg Tab, 500 MG PO Q6HR for 30 Days, MG 0 Refills 05/12/25 Methylprednisolone (Methylprednisolone) 4 Mg Tab, 4 MG PO, TAB 05/12/25 Lidocaine (Lidocaine Patch 5%) 5 % Pad, 5 % EX DAILY, PAD 05/12/25 Ibuprofen (Ibuprofen) 600 Mg Tab, 600 MG PO Q6HP, MG 0 Refills 05/12/25 Gabapentin (Gabapentin) 100 Mg Cap, 100 MG PO TID for 10 Days 05/12/25 Information Source: Patient Mode of Arrival: Ambulatory Severity: Moderate Timing: Days Duration: Since onset Prehospital treatment: None Past Medical History PAST MEDICAL HISTORY: Denies Surgical History: Denies all surgeries HORSERADISH MAKER History: No Pertinent HORSERADISH MAKER History Family History Family History: Reviewed,noncontributory to illness, No family hx of Cancer, No family hx of DM, No family hx of Heart michelle, No family hx of HTN, No family hx ofKidney michelle, No family hx of Liver michelle, No family hx of Lung michelle, No family hx of Stroke Social History Smoker: Non-Smoker Alcohol: Denies ETOH Use Drugs: Denies Drug Use Lives In: Home Constitutional: denies: chills, diaphoresis, fatigue, fever, malaise, sweats, weakness, others EENTM: denies: blurred vision, double vision, ear bleeding, ear discharge, ear drainage, ear pain, ear ringing, eye pain, eye redness, hearing loss, mouth pain, mouth swelling, nasal discharge, nose bleeding, nose congestion, nose pain, photophobia, tearing, throat pain, throat swelling, voice changes, others Respiratory: denies: cough, hemoptysis, orthopnea, SOB at rest, shortness of breath, SOB with excertion, stridor, wheezing, others Cardiovascular: denies: chest pain, dizzy spells, diaphoresis, Dyspnea on exertion, edema, irregular heart beat, left arm pain, lightheadedness, palpitati ons, PND, syncope, others Gastrointestinal: denies: abdomen distended, abdominal pain, blood streaked bowels, constipated, diarrhea, dysphagia, difficulty swallowing, hematemesis, melena, nausea, poor appetite, poor fluid intake, rectal bleeding, rectal pain, vomiting, others Genitourinary: denies: abnormal vagina bleeding, burning, dyspareunia, dysuria, flank pain, frequency, hematuria, incontinence, pain, , vagina discharge, urgency, others Neurological: denies: dizziness, fainting, headache, left sided numbness, left sided weakness, numbness, paresthesia, pre-existing deficit, right sided numbness, right sided weakness, seizure, speech problems, tingling, tremors, weakness, others Musculoskeletal: reports: joint pain, joint swelling; denies: back pain, gout, muscle pain, muscle stiffness, neck pain, others Integumetry: denies: bruises, change in color, change in hair/nails, dryness, laceration, lesions, lumps, rash, wounds, others Allergic/Immunocompromised: denies: Difficulty Healing, Frequent Infections, Hives, Itching, others Hematologic/Lymphatic: denies: anemia, blood clots, easy bleeding, easy bruising, swollen glands, others Endocrine: denies: excessive hunger, excessive sweating, excessive thirst, excessive urination, flushing, intolerance to cold, intolerance to heat, unexplained weight gain, unexplained weight loss, others Psychiatric: denies: anxiety, bipolar disorder, depression, hopeless, panic disorder, schizophrenia, sleepless, suicidal, others Physical Exam General Appearance: Obese HEENT: Normal ENT Inspection Neck: Non-Tender, Normal Inspection Respiratory: Chest Non-Tender, Lungs Clear, Normal Breath Sounds Cardiovascular: No Edema, No Murmur, Normal Peripheral Pulses, Regular Rate/Rhythm Breast Exam: Normal Gastrointestinal: Non Tender, Normal Bowel Sounds Genitalia: Deferred Pelvic: Deferred Rectal: Deferred Extremities: Calf tenderness, Decreased range of motion, Leg edema (edema around medial aspect of right knee), No pedal edema Neurologic: No Motor Deficits, Normal Affect, Normal Mood, No Sensory Deficits Cerebellar Function: Normal Reflexes: Normal Skin: Normal Color Lymphatic: No Adenopathy Was a procedure done? Was a procedure done?: No Differential Dx Considerations may include: DVT X-Ray, Labs, Meds, VS Vital Signs Date Time Temp Pulse Resp B/P (MAP) Pulse Ox O2 Delivery O2 Flow Rate FiO2 09/09/25 09:00 97.9 70 18 136/84 96 97.9 Lab Test 09/09/25 10:00 Range/Units White Blood Count 5.6 4.4-10.8 10^3/uL Red Blood Count 4.72 4.0-5.20 10^6/uL Hemoglobin 13.8 12.2-16.2 g/dL Hematocrit 41.4 36.0-46.0 % Mean Corpuscular Volume 87.6 80.0-100.0 fL Mean Corpuscular Hemoglobin 29.3 28.0-32.0 pg Mean Corpuscular Hemoglobin Concent 33.4 32.0-36.0 g/dL Red Cell Distribution Width 13.2 11.8-14.3 % Platelet Count 243 140-450 10^3/uL Mean Platelet Volume 9.7 6.9-10.8 fL Neutrophils (%) (Auto) 58.7 37.0-80.0 % Lymphocytes (%) (Auto) 34.4 10.0-50.0 % Monocytes (%) (Auto) 5.2 0.0-12.0 % Eosinophils (%) (Auto) 1.2 0.0-7.0 % Basophils (%) (Auto) 0.5 0.0-2.0 % Neutrophils # (Auto) 3.3 1.6-8.6 10 ^3/uL Lymphocytes # (Auto) 1.9 0.4-5.4 10 ^3/uL Monocytes # (Auto) 0.3 0-1.3 10 ^3/uL Eosinophils # (Auto) 0.1 0-0.8 10 ^3/uL Basophils # (Auto) 0 0-0.2 10 ^3/uL Nucleated Red Blood Cells 0.1 % Sodium Level 142 136-145 mmol/L Potassium Level 4.1 3.5-5.1 mmol/L Chloride Level 106 98-107 mmol/L Carbon Dioxide Level 29 20-31 mmol/L Anion Gap 7 5-15 Blood Urea Nitrogen 11 9-23 mg/dL Creatinine 0.52 L 0.550-1.02 mg/dL Glomerular Filtration Rate Calc 113 >90 mL/min BUN/Creatinine Ratio 21.2 H 10.0-20.0 Serum Glucose 128 H 74-106 mg/dL Calcium Level 9.4 8.7-10.4 mg/dL Time of 1ST Reevaluation: 09:35 Reevaluation 1ST: Unchanged Patient Education/Counseling: Diagnosis, Treatment, Prognosis Family Education/Counseling: Diagnosis, Treatment, Prognosis SEPSIS Sepsis Screen Date sepsis recognized/suspect: Sep 09, 2025 Time Sepsis recognized/suspect: 901 Recent Procedure: No On Antibiotic Therapy: No Respiratory Rate >20: No Heart Rate >90: No Temp<36 C (96.8 F) or >38.3 C: No SBP <90 or MAP <65 mmHG: No New Acute Mental Status Change: No Is the patient on CPAP, BIPAP,: No Physician Orders Rt Lower Dvt (09/09/25 09:21) Vital Signs Date Time Temp Pulse Resp B/P (MAP) Pulse Ox O2 Delivery O2 Flow Rate FiO2 09/09/25 09:00 97.9 70 18 136/84 96 97.9 Laboratory Tests Test 09/09/25 10:00 White Blood Count 5.6 10^3/uL (4.4-10.8) Departure 1 Departure Time of Disposition: :35 Impression: Primary Impression: DVT (deep venous thrombosis) Additional Impressions: Herniated lumbar intervertebral disc Lumbar radiculopathy Intractable back pain Disposition: 01 HOME / SELF CARE / HOMELESS Condition: Fair Critical Care Note Critical Care Time?: No Stability Stability form required: GILES Griffiths RESIDENT Sep 09, 2025 09:33
--- NOTE | 2025-09-09 10:14 | DVH ---
CLINICAL HISTORY: sweeling and pain of right lower extremity COMPARISON: None TECHNIQUE: Duplex Doppler evaluation of the deep venous system of the Right lower extremity from the common femoral vein to the popliteal vein including color Doppler and spectral/pulsed waveform analysis was performed. FINDINGS: The common femoral vein demonstrates appropriate compressibility and waveform variability. There is compressibility/patency of the great saphenous vein at the proximal thigh. The femoral vein demonstrates appropriate compressibility and waveform variability. The deep femoral vein demonstrates appropriate compressibility and waveform variability. The popliteal vein demonstrates appropriate compressibility and waveform variability. There is normal compressibility at the tibioperoneal trunk. IMPRESSION: 1. No Right deep venous thrombosis. 2. If clinical concern/symptoms persist or worsen, short-interval follow-up study is suggested.
[2025-09-09 10:28] LABS: Hematocrit 41.4 % (36.0-46.0); Hemoglobin 13.8 g/dL (12.2-16.2); Mean Corpuscular Hemoglobin 29.3 pg (28.0-32.0); Mean Corpuscular Volume 87.6 fL (80.0-100.0); Nucleated Red Blood Cells % 0.1 %
[2025-09-09 10:30] LABS: Chloride 106 mmol/L (98-107); Potassium 4.1 mmol/L (3.5-5.1); Sodium 142 mmol/L (136-145)
[2025-09-09 10:31] LABS: Anion Gap 7 (5-15); Calcium 9.4 mg/dL (8.7-10.4); Carbon Dioxide 29 mmol/L (20-31)
[2025-09-09 10:36] LABS: BUN/Creatinine Ratio 21.2 (10.0-20.0); Blood Urea Nitrogen 11 mg/dL (9-23)
[2025-09-09 10:37] LABS: Glucose 128 mg/dL (74-106)
== END 2025-09-09 11:52 | disposition home or self-care (01) ==
LOC: ER 08:57
DX: I82.409 Acute embolism and thrombosis of unspecified deep veins of unspecified lower extremity (principal); M51.16 Intervertebral disc disorders with radiculopathy, lumbar region; M54.9 Dorsalgia, unspecified; Z79.899 Other long term (current) drug therapy
CPT/HCPCS: 36415; 80048; 85025; 93971